=== PATIENT | female | born 1970 | race American Indian/Alaskan Native ===

== ENCOUNTER 2017-09-28 21:18 | Emergency (ER) | payer OTHER ==
[2017-09-28 22:04] VITALS: BP 126/72
[2017-09-28 22:28] LABS: Hemoglobin 7.6 gm/dl (10.1-14.3)
[2017-09-28 22:33] LABS: Mean Corpuscular HGB Conc 29 % (30-34); Platelet Count 307 K/mm3 (140-440); Red Blood Count 3.83 M/mm3 (3.65-5.03); Red Cell Distribution Width 18.8 % (13.2-15.2)
[2017-09-28 22:37] LABS: Hematocrit 25.7 % (30.3-42.9); Mean Corpuscular Hemoglobin 20 pg (28-32); Mean Corpuscular Volume 67 fl (79-97)
[2017-09-28 22:43] LABS: BUN/Creatinine Ratio 19; Blood Urea Nitrogen 15 mg/dL (7-17); Calcium 8.6 mg/dL (8.4-10.2); Hemolysis Index 0
[2017-09-28 23:06] LABS: Bilirubin,Urine NEG (Negative); Blood,Urine SM (Negative); Color,Urine Yellow (Yellow); Mucus,Urine 3+ /HPF; Protein,Urine <15 mg/dL mg/dL (Negative)
[2017-09-28 23:15] LABS: HCG Qualitative,Urine Negative (Negative)
== END 2017-09-28 23:49 | disposition left against medical advice (07) ==
LOC: ED 21:18
DX: D64.9 Anemia, unspecified (principal); Z53.21 Procedure and treatment not carried out due to patient leaving prior to being seen by health care provider
CPT/HCPCS: 36415; 80048; 81001; 81025; 85027; 86850; 86900; 86901